=== PATIENT | male | born 1995 | race African-American/Black ===

== ENCOUNTER 2020-12-29 22:41 | Emergency (ER) | payer OTHER, BC ==
[~2020-12-29] VITALS: Ht 177.8 cm; Wt 74.8 kg
[2020-12-29] MEDS ORDERED: ZYRTEC10 M5 PO (22:54)
[2020-12-29] MEDS ORDERED: ALBUTEROL INHALER (22:55)
[2020-12-30 00:07] LABS: ABSOLUTE NEUTROPHILS 3.7 thou/uL (1.4-8.2); BASOPHILS 0.5 % (0.0-2.0); EOSINOPHILS 4.3 % (0.0-3.0); HEMATOCRIT 42.4 % (42.0-52.0); HEMOGLOBIN 14.3 gm/dL (14.0-18.0); LYMPHOCYTES 29.2 % (24.0-44.0); MCH 26.3 pg (26.0-34.0); MCHC 33.8 g/dL (28.0-37.0); MCV 77.9 fL (80.0-100.0); MONOCYTES 10.5 % (1.0-8.0); PLATELET COUNT 148 thou/uL (150-400); POLYS 55.5 % (36.0-66.0); RBC 5.45 mil/uL (4.50-6.00); WBC 6.7 thou/uL (4.0-11.0)
[2020-12-30 00:09] LABS: CALCIUM 8.6 mg/dL (8.5-10.1); CREATININE 1.1 mg/dL (0.7-1.3); POTASSIUM 3.9 mmol/L (3.5-5.1)
[2020-12-30] MEDS ORDERED: MELOXICAM15 MG PO (01:07)
[2020-12-30 01:55] VITALS: BP 122/72
--- NOTE | 2020-12-30 07:12 | EKG ---
[place] [address] [employer] [facility] [place] [address] ELECTROCARDIOGRAM REPORT Name: ONEIL BROWN Room #: NARENDRA Huang#: [id number] Admission: 12/29/20 Attend Phys: Discharge: 12/30/20 Date of : [birth year] Report #: [id number] [facility] ED Test Date: 2020-12-29 Test Time: 22:51:22 Pat Name: ONEIL BROWN Department: Room: Gender: It Sales Consultant: MAGGIE : 1995 Requested By: Jazz Bradley Order Number: [id number] MD: Víctor Alvarez Measurements Intervals [place] Rate: 55 P: 62 MT: 163 QRS: 97 QRSD: 92 T: 52 QT: 406 QTc: 389 Interpretive Statements Sinus rhythm Probable left atrial enlargement Borderline right axis deviation No previous ECG available for comparison Electronically Signed On 12-30-2020 7:12:06 CDT by Víctor Alvarez [email or web address] <ELECTRONICALLY SIGNED> By: Víctor Alvarez MD, [facility] 12/30/20 0712 225 [id number] Víctor Alvarez MD, FACC /EPI
== END 2020-12-30 02:00 | disposition home or self-care (01) ==
LOC: ER 22:41
PROVIDERS: Emergency Medicine
DX: I31.9 Disease of pericardium, unspecified (principal); J45.909 Unspecified asthma, uncomplicated; I10 Essential (primary) hypertension; F12.90 Cannabis use, unspecified, uncomplicated; Z98.890 Other specified postprocedural states; Z79.51 Long term (current) use of inhaled steroids; Z79.899 Other long term (current) drug therapy; Z88.1 Allergy status to other antibiotic agents; Z91.09 Other allergy status, other than to drugs and biological substances

== ENCOUNTER → 2021-01-05 | Outpatient (CLI) | payer OTHER, BC ==
[~2021-01-05] MED LIST: ALBUTEROL INHALER; MELOXICAM15 MG PO; ZYRTEC10 M5 PO
== END ==
LOC: SJCVCIMAG 08:06
PROVIDERS: ATTEND Internal Medicine
DX: R06.02 Shortness of breath (principal); M54.9 Dorsalgia, unspecified